=== PATIENT | male | born 1980 | race Caucasian/White ===

== ENCOUNTER 2020-01-17 01:31 | Day surgery (SDC) | payer OTHER, SELFPAY ==
[2020-01-16 16:36] VITALS: BMI 30.2
[2020-01-17] VITALS (8 sets, daily range): BP systolic 128–137; BP diastolic 67–96; PULSE 54–80; RESP 12–16; TEMP 36–36.8; O2SAT 93–99; BMI 30.2
--- NOTE | ~2020-01-17 | XR_ITS ---
EXAMINATION: XR surgery orthopedic DATE: 01/17/2020 09:18 INDICATION: Left thumb ligament reconstruction TECHNIQUE: 4 fluoroscopic spot images of the left thumb were obtained during procedure performed by Medhat Espinoza. Radiologist was not present for the imaging or procedure. The amount of fluoroscopy time used during this procedure was 3.3 minutes. COMPARISON: None. FINDINGS: Initial images demonstrate a mildly distracted ulnar collateral ligament avulsion fracture at the uln ar base of the left first proximal phalanx. There is widening of the ulnar side of the first metacarp ophalangeal joint space along what appears to be a stressed view. Subsequent images demonstrate lucen t likely suture anchor tracks at the ulnar side of the head of the first metacarpal and base of the f irst proximal phalanx. The degree of distraction of the fracture fragment appears decreased on the fi nal image. IMPRESSION: 1. Fluoroscopy utilized during the repair of an ulnar collateral ligament injury including avulsion f racture at the base of the left first proximal phalanx. See procedure note for further detail. Reviewed, dictated and finalized at location A. IMPRESSION: 1. Fluoroscopy utilized during the repair of an ulnar collateral ligament injur y including avulsion fracture at the base of the left first proximal phalanx. S ee procedure note for further detail.
[2020-01-17] MEDS: LACTATED RINGERS 1,000 ML 30 ML IV CONT ×2 (06:40→09:31)
[2020-01-17] MEDS: IBUPROFEN IV 800 MG/200 ML 800 MG/200 ML BAG 400 MG IVPB (06:45)
--- NOTE | 2020-01-17 06:48 | WPDANESEPPF ---
Anes - Initial Pre Proc Eval Procedure: Operation Date: 01/17/20 07:30 Proposed Procedures p Open Reduction Internal Fixation Left Thumb, Possible Ligament Reconstruction - Shaq Espinoza MD Date/Time: 01/17/20 06:48 Surgeon: Shaq Espinoza MD Pre Op Diagnosis: Left Thumb FX Patient Data Age: 39 Gender: M Height: 5 ft 10 in Weight: 95.5 kg Allergies Allergy/AdvReac Type Severity Reaction Status Date / Time azithromycin Allergy Intermediate Rash Verified 01/17/20 06:27 Home Medications Medication Instructions Recorded Confirmed Type No Home Medications 01/16/20 01/17/20 History Patient hx anesthesia problems: none Family hx anesthesia problems: none [facility] Past Medical History Medical History Fracture of phalanx of left thumb Pain of left thumb Stener lesion, thumb MP (metacarpophalangeal) joint Social History Social History Smoking status: Never smoker Alcohol intake: current Anes - Eval Final PreProcedure Day of Procedure 01/17/20 06:48 Patient weight: obese Heart: regular rate and rhythm Lungs: clear to auscultation Airway: Mallampati scale class II Neurological: alert and oriented Last oral intake: >/= 8 hours ASA classification: II Emergent: no Anesthetic plan: proceed Anesthesia type and monitoring: general LMA and standard monitoring Informed Consent: The patient's anesthetic plan and its attendant risks and benefits were discussed with the patient/family/POA. Questions were solicited and answers provided to the satisfaction of the patient/family/POA.
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
[2020-01-17] MEDS: ceFAZolin 2 GM/D5W 50 ML 2 GM/50 ML BAG IVPB (07:29)
--- NOTE | 2020-01-17 11:44 | WPDHPUPDATE1 ---
History and Physical Update Update Date/Time: 01/17/20 07:00 History and Physical has been reviewed, including an updated exam of the patient. There are NO changes in the patient's condition. Risks, benefits, and alternatives have been discussed and questions answered. Patient agrees to proceed with procedure.
== END 2020-01-17 11:31 | disposition home or self-care (01) ==
PROVIDERS: PCP Family Medicine; Visit Provider Orthopaedic Surgery
PROC: (CPT 26735; principal; 2020-01-17 07:30)
DX: S62.512A Displaced fracture of proximal phalanx of left thumb, initial encounter for closed fracture (principal); S53.32XA Traumatic rupture of left ulnar collateral ligament, initial encounter; V19.9XXA Pedal cyclist (driver) (passenger) injured in unspecified traffic accident, initial encounter; E66.9 Obesity, unspecified; Z68.30 Body mass index [BMI] 30.0-30.9, adult
CPT/HCPCS: 26735; A9270; C1713; J0690; J1741; J2250; J2405; J2704; J3010; J7120

== ENCOUNTER → 2020-03-20 11:27 | Outpatient (CLI) | payer OTHER, SELFPAY ==
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
== END ==
PROVIDERS: Visit Provider Nurse Practitioner Family
DX: S99.912A Unspecified injury of left ankle, initial encounter (principal); X58.XXXA Exposure to other specified factors, initial encounter
CPT/HCPCS: 73700

== ENCOUNTER → 2020-07-29 12:24 | Outpatient (CLI) | payer OTHER, SELFPAY ==
--- NOTE | ~2020-07-29 | MR_ITS ---
EXAMINATION: MR knee RT wo con DATE: 07/29/2020 12:56 INDICATION: Medial collateral ligament sprain presenting with medial right knee pain post injury 2 mo nths prior. TECHNIQUE: Magnetic resonance imaging (MRI) of the right knee was performed without intravenous contr ast. Sequences included coronal PD-weighted FSE, coronal PD-weighted FS FSE, sagittal T2-weighted FS E, sagittal PD-weighted FS FSE and axial PD weighted fat saturated FSE. COMPARISON: None. FINDINGS: Medial compartment: Medial meniscus is normal. Articular cartilage is normal. Lateral compartment: Lateral meniscus is normal. Articular cartilage is normal. Patellofemoral compartment: Partial-thickness chondral ulceration which appears to involve approximately 50% the cartilage thickn ess and without degenerative subchondral changes at the trochlear groove and lateral side of the medi al trochlea. Patellar cartilage appears relatively preserved. Ligaments and tendons: Anterior and posterior cruciate ligaments are normal. The fibular collateral ligament is normal. Mild thickening and increased signal at the proximal most medial collateral ligament with minimal surroun ding edema consistent with subacute low-grade sprain. The extensor mechanism is normal. The visualize d medial and lateral hamstring tendons as well as the iliotibial band are normal. Fluid: Physiologic amount of fluid in the joint space. No loose osteochondral bodies identified. Osseous/other: Normal marrow signal. No fracture or abnormal marrow replacing process. IMPRESSION: 1. Likely subacute low-grade sprain of the proximal medial collateral ligament. 2. Moderate grade trochlear chondromalacia. Reviewed, dictated and finalized at [facility]. O EDITING INTERN
== END ==
PROVIDERS: PCP Family Medicine; Visit Provider Orthopaedic Surgery
DX: S83.411A Sprain of medial collateral ligament of right knee, initial encounter (principal); M94.261 Chondromalacia, right knee
CPT/HCPCS: 73721

== ENCOUNTER 2023-07-17 12:53 | Outpatient (CLI) | payer OTHER, SELFPAY ==
--- NOTE | ~2023-07-17 | XR_ITS ---
Right ankle Technique: AP, oblique, and lateral views were obtained. Clinical History: Pain Findings: No acute fracture or dislocation is seen. Osseous alignment is anatomic. Ankle mortise and other visualized joint spaces are preserved. Soft tissues are otherwise unremarkable. Impression: Unremarkable right ankle. Reviewed, dictated and finalized at location . L INSPECTOR Impression: Unremarkable right ankle.
== END 2023-07-17 12:54 | disposition home or self-care (01) ==
LOC: ANHBWCIMG 12:55
PROVIDERS: PCP Family Medicine; Visit Provider Orthopaedic Surgery
DX: M25.571 Pain in right ankle and joints of right foot (principal)
CPT/HCPCS: 73610